=== PATIENT | male | born 2005 | race Caucasian/White ===

== ENCOUNTER 2023-11-24 19:51 | Emergency (ER) | payer BC ==
[2023-11-24 20:16] VITALS: BP 122/82; PULSE 67; RESP 16; TEMP 97.5; BMI 24.4
== END 2023-11-24 22:37 | disposition home or self-care (01) ==
LOC: FER 19:51
DX: R06.02 Shortness of breath (principal); R07.89 Other chest pain; R00.1 Bradycardia, unspecified
CPT/HCPCS: 71046-TC-FY; 93005; 99284-25